=== PATIENT | female | born 1990 | race Caucasian/White ===

== ENCOUNTER 2022-04-25 08:45 | Emergency (ER) | payer SELFPAY ==
[~2022-04-25] VITALS: Ht 165.1 cm; Wt 88.1 kg
--- NOTE | 2022-04-25 08:55 | ED GI ---
General Stated Complaint: VOMITING Source of Information: Patient Exam Limitations: No Limitations History of Present Illness Date Seen by Provider: Apr 25, 2022 Time Seen by Provider: 08:47 Initial Comments 31-year-old female with no pertinent past medical history coming in due to nausea and nonbloody nonbilious vomiting. Been going on since Friday, , now she is just driving. She says she has been unable to really keep anything down for a couple days. Has not been around anyone sick that she knows of. Had COVID last year, is not vaccinated. Denies any cough, fever, chest pain, shortness of breath, severe abdominal pain, diarrhea, dysuria, vaginal bleeding, weakness, numbness, rash, or any other concerns. Does not remember her LMP, has an IUD in place Allergies and Home Medications Allergies Coded Allergies: No Known Drug Allergies (Unverified , 04/25/22) Patient Home Medication List Home Medication List Reviewed: Yes Ondansetron (Ondansetron Odt) 4 Mg Tab.rapdis, 4 MG PO Q6H PRN for NAUSEA/ VOMITING-1ST LINE Prescribed by: JEREMIAH DENG on 04/25/22 0933 Review of Systems Review of Systems Constitutional: No fever EENTM: No Blurred Vision Respiratory: Denies Cough Cardiovascular: Denies Chest Pain Gastrointestinal: Denies Abdominal Pain; Nausea, Vomiting Genitourinary: No Symptoms Reported Musculoskeletal: no symptoms reported Skin: no symptoms reported Psychiatric/Neurological: No Symptoms Reported Endocrine: No Symptoms Reported Hematologic/Lymphatic: No Symptoms Reported All Other Systems Reviewed Negative Unless Noted: Yes Physical Exam Vital Signs Vital Signs - First Documented 04/25/22 09:00 Temp 36.7 Pulse 70 Resp 16 B/P (MAP) 120/82 (95) Pulse Ox 96 O2 Delivery Room Air Capillary Refill : Height/Weight/BMI Height: '" Weight: lbs. oz. kg; BMI Method: General Appearance: WD/WN, no apparent distress HEENT: PERRL/EOMI, normal ENT inspection, pharynx normal Neck: non-tender, full range of motion, supple, normal inspection Respiratory: chest non-tender, lungs clear, normal breath sounds, no r espiratory distress, no accessory muscle use Cardiovascular: regular rate, rhythm, no edema, no murmur Gastrointestinal: normal bowel sounds, non tender, soft; No guarding, No rebound Extremities: normal range of motion, non-tender, normal inspection, no pedal edema, no calf tenderness, normal capillary refill Back: normal inspection, no CVA tenderness Neurologic/Psychiatric: no motor/sensory deficits, alert, normal mood/affect Skin: normal color, warm/dry Lymphatic: no adenopathy Progress/Results/Core Measures Results/Orders Lab Results Laboratory Tests Test 04/25/22 09:15 04/25/22 09:30 Range/Units White Blood Count 4.6 4.3-11.0 10^3/uL Red Blood Count 4.73 3.80-5.11 10^6/uL Hemoglobin 13.9 11.5-16.0 g/dL Hematocrit 41 35-52 % Mean Corpuscular Volume 87 80-99 fL Mean Corpuscular Hemoglobin 29 25-34 pg Mean Corpuscular Hemoglobin Concent 34 32-36 g/dL Red Cell Distribution Width 12.9 10.0-14.5 % Platelet Count 224 130-400 10^3/uL Mean Platelet Volume 9.2 9.0-12.2 fL Immature Granulocyte % (Auto) 0 % Neutrophils (%) (Auto) 58 42-75 % Lymphocytes (%) (Auto) 27 12-44 % Monocytes (%) (Auto) 13 H 0-12 % Eosinophils (%) (Auto) 1 0-10 % Basophils (%) (Auto) 1 0-10 % Neutrophils # (Auto) 2.7 1.8-7.8 10^3/uL Lymphocytes # (Auto) 1.3 1.0-4.0 10^3/uL Monocytes # (Auto) 0.6 0.0-1.0 10^3/uL Eosinophils # (Auto) 0.1 0.0-0.3 10^3/uL Basophils # (Auto) 0.0 0.0-0.1 10^3/uL Immature Granulocyte # (Auto) 0.0 0.0-0.1 10^3/uL Sodium Level 138 135-145 MMOL/L Potassium Level 4.1 3.6-5.0 MMOL/L Chloride Level 104 98-107 MMOL/L Carbon Dioxide Level 22 21-32 MMOL/L Anion Gap 12 5-14 MMOL/L Blood Urea Nitrogen 9 7-18 MG/DL Creatinine 0.79 0.60-1.30 MG/DL Estimat Glomerular Filtration Rate 101 BUN/Creatinine Ratio 11 Glucose Level 98 70-105 MG/DL Calcium Level 9.6 8.5-10.1 MG/DL Corrected Calcium 9.3 8.5-10.1 MG/DL Total Bilirubin 0.4 0.1-1.0 MG/DL Aspartate Amino Transf (AST/SGOT) 20 5-34 U/L Alanine Aminotransferase (ALT/SGPT) 22 0-55 U/L Alkaline Phosphatase 62 40-136 U/L Total Protein 7.5 6.4-8.2 GM/DL Albumin 4.4 3.2-4.5 GM/DL My Orders Orders - JEREMIAH DENG MD Urine Bedside (04/25/22 08:55) Cbc With Automated Diff (04/25/22 09:10) Comprehensive Metabolic Panel (04/25/22 09:10) Lipase (04/25/22 09:10) Influenza A & B Antigens (04/25/22 09:10) Covid 19 Inhouse Test (04/25/22 09:10) Ed Iv/Invasive Line Start (04/25/22 09:10) Ondansetron Injection (Zofran Injectio (04/25/22 09:15) D5 Lr Iv Solution (Dextrose 5%/Lactated (04/25/22 09:10) D5 Ns 1000 Ml Iv Solution (Dextrose 5%/0 (04/25/22 09:30) D5 Ns 1000 Ml Iv Solution (Dextrose 5%/0 (04/25/22 09:19) Medications Given in ED Current Medications Medications Dose Ordered Sig/Karissa Route Start Time Stop Time Status Last Admin Dose Admin Ondansetron HCl 4 mg ONCE ONCE IVP 04/25/22 09:15 04/25/22 09:16 DC 04/25/22 09:22 4 MG Vital Signs/I&O 04/25/22 09:00 Temp 36.7 Pulse 70 Resp 16 B/P (MAP) 120/82 (95) Pulse Ox 96 O2 Delivery Room Air Progress Progress Note : Progress Note 31-year-old female with above history coming in due to nausea and vomiting. ABCs were intact and vitals were stable on presentation. Physical exam reassuring including a soft and nontender abdomen. Vitals also reassuring and she is not tachycardic. I encourage p.o. intake, with the patient is concerned she has been driving so much she cannot swallow right now. An IV was placed and she was given a bolus of IV fluids. Basic labs reassuring including normal LFTs and lipase. COVID and flu testing sent and are pending. test is negative. She is not having any urinary symptoms. Given IV Zofran with improvement. I believe she is stable for discharge with outpatient follow-up. She was sent home with strict return precautions Departure Impression Primary Impression: Vomiting in adult Disposition: HOME, SELF-CARE Condition: Stable Departure-Patient Inst. Decision time for Depature: 10:00 Referrals: [facility][1]/[facility] [place] YANETH,LOCAL PHYSICIAN (PCP) Primary Care Physician Patient Instructions: Nausea and Vomiting, Adult ED Add. Discharge Instructions: Nausea medicines have been sent to your pharmacy. Try to take small but frequent sips of fluids such as Gatorade, Pedialyte, or Body Armor. If you begin having severe abdominal pain, or any other concerns and please come back to the ER. Please follow-up with [facility] or doctor of your choosing within the next week if things are not improving Scripts Ondansetron (Ondansetron Odt) 4 Mg Tab.rapdis 4 MG PO Q6H PRN for NAUSEA/VOMITING-1ST LINE for 5 Days, #20 TAB Prov: JEREMIAH DENG MD 04/25/22 Work/School Note: Work Release Form Date Seen in the Emergency Department: Apr 25, 2022 Return to Work: Apr 28, 2022 Restrictions: Return-No Fever (24hrs), Return-No Vomiting(24hrs) JEREMIAH DENG MD Apr 25, 2022 08:55
[2022-04-25] MEDS ORDERED: D5 LR IV SOLUTION 1,000 ML IV STA (09:10)
[2022-04-25] MEDS ORDERED: ONDANSETRON 4 MG/2 ML (SDV) Z0FRAN IVP ONE (09:15)
[2022-04-25] MEDS ORDERED: D5 NS 1000 ML IV SOLUTION 1,000 ML IV ONE (09:19)
[2022-04-25 09:21] LABS: BASOPHILS % (AUTO) 1 % (0-10); EOSINOPHILS # (AUTO) 0.1 10^3/uL (0.0-0.3); EOSINOPHILS % (AUTO) 1 % (0-10); HEMATOCRIT 41 % (35-52); HEMOGLOBIN 13.9 g/dL (11.5-16.0); LYMPHOCYTES # (AUTO) 1.3 10^3/uL (1.0-4.0); LYMPHOCYTES % (AUTO) 27 % (12-44); MEAN CORPUSCULAR HEMOGLOBIN 29 pg (25-34); MEAN CORPUSCULAR HGB CONC 34 g/dL (32-36); MEAN CORPUSCULAR VOLUME 87 fL (80-99); MEAN PLATELET VOLUME 9.2 fL (9.0-12.2); MONOCYTES # (AUTO) 0.6 10^3/uL (0.0-1.0); MONOCYTES % (AUTO) 13 % (0-12); NEUTROPHILS # (AUTO) 2.7 10^3/uL (1.8-7.8); NEUTROPHILS % (AUTO) 58 % (42-75); PLATELET COUNT 224 10^3/uL (130-400); WHITE BLOOD COUNT 4.6 10^3/uL (4.3-11.0)
[2022-04-25] MEDS ORDERED: D5 NS 1000 ML IV SOLUTION 1,000 ML IV SCH (09:30)
[2022-04-25] MEDS ORDERED: ONDA4TAB11 PO (09:33)
[2022-04-25 09:49] LABS: BILIRUBIN,TOTAL 0.4 MG/DL (0.1-1.0); CALCIUM 9.6 MG/DL (8.5-10.1); CREATININE SERUM 0.79 MG/DL (0.60-1.30); POTASSIUM 4.1 MMOL/L (3.6-5.0)
[2022-04-25 09:50] LABS: ALBUMIN 4.4 GM/DL (3.2-4.5); TOTAL PROTEIN 7.5 GM/DL (6.4-8.2)
[2022-04-25 10:00] VITALS: BP 102/64
== END 2022-04-25 10:02 | disposition home or self-care (01) ==
LOC: ER FS 08:47
DX: U07.1 COVID-19 (principal); R11.2 Nausea with vomiting, unspecified; Z28.310 Unvaccinated for COVID-19; Z97.5 Presence of (intrauterine) contraceptive device; Z32.02 Encounter for pregnancy test, result negative
CPT/HCPCS: 36415; 80053; 83690; 84703; 85025; 87636; 87804